=== PATIENT | male | born 1980 | race Caucasian/White ===

== ENCOUNTER 2019-02-09 16:10 | Emergency (ER) | payer OTHER ==
[~2019-02-09] VITALS: Ht 177.8 cm; Wt 90.7 kg
[2019-02-09 16:37] VITALS: BP 136/80
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
[2019-02-09 17:26] VITALS: BP 135/80
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
== END 2019-02-09 17:30 | disposition home or self-care (01) ==
LOC: ER 16:10
DX: S20.212A Contusion of left front wall of thorax, initial encounter (principal); S13.9XXA Sprain of joints and ligaments of unspecified parts of neck, initial encounter; F17.210 Nicotine dependence, cigarettes, uncomplicated; V43.52XA Car driver injured in collision with other type car in traffic accident, initial encounter; Y93.89 Activity, other specified; Y92.488 Other paved roadways as the place of occurrence of the external cause; Y99.8 Other external cause status
CPT/HCPCS: 72040; 99284; 71101-LT